=== PATIENT | female | born 2000 | race American Indian/Alaskan Native ===

== ENCOUNTER 2021-01-01 16:13 | Emergency (ER) | payer OTHER, MEDICAID ==
[~2021-01-01] VITALS: Ht 167.6 cm; Wt 54.4 kg
[2021-01-01] MEDS ORDERED: HYDR-4209 PO (18:28)
[2021-01-01] MEDS ORDERED: IBUP-1955 PO (18:28)
[2021-01-01] MEDS ORDERED: ONDA4TAB5 PO (18:28)
--- NOTE | 2021-01-01 18:59 | NUR ---
Patient discharged to home in stable condition. Written and verbal after care instructions given. Patient verbalizes understanding of instructions. Stressed follow up or return to ER for worsening s/s.
[2021-01-01 19:00] VITALS: BP 101/60
== END 2021-01-01 19:00 | disposition home or self-care (01) ==
LOC: ER 16:15
DX: S06.0X9A Concussion with loss of consciousness of unspecified duration, initial encounter (principal); R40.2142 Coma scale, eyes open, spontaneous, at arrival to emergency department; R40.2362 Coma scale, best motor response, obeys commands, at arrival to emergency department; R40.2252 Coma scale, best verbal response, oriented, at arrival to emergency department; S13.9XXA Sprain of joints and ligaments of unspecified parts of neck, initial encounter; V43.52XA Car driver injured in collision with other type car in traffic accident, initial encounter; Y93.89 Activity, other specified; Y92.410 Unspecified street and highway as the place of occurrence of the external cause
CPT/HCPCS: A4663